=== PATIENT | female | born 1940 | race Caucasian/White ===

== ENCOUNTER 2016-05-19 06:33 | Emergency (ER) | payer MEDICARE, OTHER ==
[2016-05-19 06:41] VITALS: BP 151/80
--- NOTE | 2016-05-19 07:03 | ED Physician Documentation ---
PD HPI ABD PAIN - Stated complaint Stated Complaint: STOMACH AND BACK PX - Chief complaint Chief Complaint: Abd Pain - History obtained from History obtained from: Patient - History of Present Illness Timing - onset: How many days ago (few) Timing - duration: Days (few days of upper abd pain worsening, significant pain overnight) Timing - details: Gradual onset, Still present Quality: Aching, Sharp, Pain Location: Epigastric Radiation: Upper back Improved by: Meds (antacids help but only briefly. Using Pepto.) Worsened by: Eating Associated symptoms: Nausea. No: Fever, Vomiting, Diarrhea, Melena (noted dark stool after taking the pepto) Similar symptoms before: Diagnosis (ulcers) Recently seen: Not recently seen Review of Systems Constitutional: denies: Fever Nose: denies: Rhinorrhea / runny nose, Congestion Throat: denies: Sore throat Respiratory: denies: Cough GI: reports: Abdominal Pain, Nausea. 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: Uterine cancer, Other Other Past Medical History: vaginal ca - Past Surgical History General: Cholecystectomy Ortho: Spine surgery /GEOMETRY PROFESSOR: Hysterectomy HEENT: Cataracts Derm: Skin cancer surgery - Present Medications Home Medications: Ambulatory Orders Medication Instructions Recorded Confirmed Aspirin 81 mg PO DAILY 05/19/16 05/19/16 Atenolol 05/19/16 Hydrochlorothiazide 25 mg PO DAILY 05/19/16 05/19/16 Hydrocodone/Acetaminophen [Luttrell 1 each PO Q6H PRN #20 tablet 05/19/16 5-325 Tablet] Lidocaine Viscous 2% [Xylocaine 5 ml MM Q4H PRN #1 bottle 05/19/16 Viscous 2%] Pantoprazole [Protonix] 40 mg PO DAILY #30 tablet 05/19/16 Sucralfate 1 gm PO QID #40 tablet 05/19/16 - Allergies Allergies/Adverse Reactions: Allergies Allergy/AdvReac Type Severity Reaction Status Date / Time No Known Drug Allergies Allergy Verified 05/19/16 06:41 - Social History Does the pt smoke?: No Smoking Status: Never smoker Does the pt drink ETOH?: No Does the pt have substance abuse?: No - Immunizations Immunizations are current?: No PD ED PE NORMAL - Vitals Vital signs reviewed: Yes - General General: Alert and oriented X 3, Well developed/nourished - HEENT HEENT: Pharynx benign - Neck Neck: Supple, no meningeal sign - Cardiac Cardiac: RRR, No murmur - Respiratory Respiratory: Clear bilaterally - Abdomen Abdomen: Normal bowel sounds, Soft, Non distended, No organomegaly, Other ( tender epigastric without percussion nor rebound tenderness. ) - Back Back: No CVA TTP - Derm Derm: Normal color, Warm and dry - Extremities Extremities: Normal ROM s pain, No edema, No calf tenderness / cord - Neuro Neuro: Alert and oriented X 3, No motor deficit, Normal speech Results - Vitals Vitals: Vital Signs - 24 hr 05/19/16 06:36 Temperature 36.9 C Heart Rate 73 Respiratory 14 Rate Blood Pressure 151/80 H O2 Saturation 98 Oxygen O2 Source Room air - Labs Labs: Laboratory Tests 05/19/16 05/19/16 05/19/16 07:40 07:40 07:40 WBC 8.2 RBC 4.02 L Hgb 11.9 L Hct 35.4 L MCV 88.0 MCH 29.6 MCHC 33.6 RDW 15.1 H Plt Count 226 MPV 7.9 Neut # 4.7 Lymph # 2.5 [place] # 0.6 Eos # 0.4 Baso # 0.1 Absolute Nucleated RBC 0.00 Nucleated RBCs 0.0 Sodium 137 Potassium 4.3 Chloride 104 Carbon Dioxide 24 Anion Gap 9.0 BUN 35 H Creatinine 1.5 H Estimated GFR (MDRD) 34 L Glucose 124 H Calcium 9.3 Total Bilirubin 0.6 AST 33 ALT 33 Alkaline Phosphatase 84 Total Protein 7.3 Albumin 4.0 Globulin 3.3 Albumin/Globulin Ratio 1.2 Lipase 40 H. pylori IgG Antibody Negative PD MEDICAL DECISION MAKING - ED course Complexity details: considered differential (improved with GI cocktail and does not have gallbladder. Labs are good. H.pylori negative. ), d/w patient Departure - Departure Disposition: 01 Home, Self Care Clinical Impression: Epigastric abdominal pain Condition: Stable Record reviewed to determine appropriate education?: Yes Instructions: ED PUD Follow-Up: Mandeep Nuñez MD [Primary Care Provider] - Prescriptions: Hydrocodone/Acetaminophen [Luttrell 5-325 Tablet] 1 each PO Q6H PRN #20 tablet PRN Reason: Pain Pantoprazole [Protonix] 40 mg PO DAILY #30 tablet Sucralfate 1 gm PO QID #40 tablet Lidocaine Viscous 2% [Xylocaine Viscous 2%] 5 ml MM Q4H PRN #1 bottle PRN Reason: Pain Comments: Hold your aspirin for 1-2 weeks. Change to pantoprazole for acid reduction. Add sulcralfate 4times daily to coat the stomach. Tylenol or hydrocodone for pain as needed. Could also use some of the lidocaine mixed with antacid for stomach pain when bad. Recheck with PMD in about a week. Discharge Date/Time: 05/19/16 08:31
[2016-05-19] MEDS ORDERED: MAG HYDROX/AL HYDROX/SIMETH 30 ML UDC ONE (07:30)
[2016-05-19] MEDS ORDERED: LIDOCAINE VISCOUS 2% 15 ML UDC MM ONE (07:30)
[2016-05-19] MEDS ORDERED: HYDROcod/ACETAM 5/325 MG TABLET ONE (07:30)
[2016-05-19] MEDS: LIDOCAINE VISCOUS 2% 15 ML UDC MM STA (07:34)
[2016-05-19] MEDS: HYDROcod/ACETAM 5/325 MG TABLET PO STA (07:34)
[2016-05-19] MEDS: MAG HYDROX/AL HYDROX/SIMETH 30 ML UDC PO STA (07:34)
[2016-05-19 07:49] LABS: BASOPHILS # (AUTO) 0.1 10^3/uL (0.0-0.1); BASOPHILS % (AUTO) 0.8 %; EOSINOPHILS # (AUTO) 0.4 10^3/uL (0.0-0.7); EOSINOPHILS % (AUTO) 4.3 %; HCT - HEMATOCRIT 35.4 % (37.0-47.0); HGB - HEMOGLOBIN 11.9 g/dL (12.0-16.0); LYMPHOCYTES # (AUTO) 2.5 10^3/uL (1.5-3.5); LYMPHOCYTES % (AUTO) 30.1 %; MEAN CORPUSCULAR HEMOGLOBIN 29.6 pg (27.0-31.0); MEAN CORPUSCULAR HGB CONC 33.6 g/dL (32.0-36.0); MEAN PLATELET VOLUME 7.9 fL (7.9-10.8); MONOCYTES # (AUTO) 0.6 10^3/uL (0.0-1.0); NEUTROPHILS # (AUTO) 4.7 10^3/uL (1.5-6.6); NEUTROPHILS % (AUTO) 57.8 %; RED BLOOD COUNT 4.02 10^6/uL (4.20-5.40); RED CELL DISTRIBUTION WIDTH 15.1 % (12.0-15.0); UNCORRECTED WHITE BLOOD COUNT 8.2 x10^3/uL; WHITE BLOOD COUNT 8.2 x10^3/uL (4.8-10.8)
[2016-05-19 08:00] LABS: ALBUMIN/GLOBULIN RATIO 1.2 (1.0-2.2); BILIRUBIN,TOTAL 0.6 mg/dL (0.2-1.0); CALCIUM 9.3 mg/dL (8.5-10.3); CREATININE 1.5 mg/dL (0.4-1.0); POTASSIUM 4.3 mmol/L (3.5-5.0); TOTAL PROTEIN 7.3 g/dL (6.7-8.2)
[2016-05-19 08:28] LABS: H. PYLORI IGG ANTIBODY Negative (Negative); HPYLORI NEG QC Negative (Negative); HPYLORI POS QC POSITIVE (Positive)
== END 2016-05-19 08:31 | disposition home or self-care (01) ==
LOC: ED 06:33
DX: R10.13 Epigastric pain (principal); I10 Essential (primary) hypertension; Z87.11 Personal history of peptic ulcer disease; Z79.82 Long term (current) use of aspirin
CPT/HCPCS: 36415; 80053; 83690; 85025; 87339; 99283

== ENCOUNTER 2016-05-29 09:07 | Day surgery (SDC) | payer MEDICARE, OTHER ==
[2016-05-29] MEDS ORDERED: LACTATED RINGERS 1,000 ML IV ONE (09:42)
[2016-05-29] MEDS ORDERED: PROPOFOL 200 MG/20 ML VIAL IVP ONE (11:00)
[2016-05-29] MEDS ORDERED: ONDANSETRON 40 MG/20 ML MDV IV ONE (11:00)
[2016-05-29] MEDS ORDERED: MIDAZOLAM 2 MG/2 ML VIAL IVP ONE (11:00)
[2016-05-29] MEDS ORDERED: LIDOCAINE-MPF 2% 5 ML VIAL IM ONE (11:00)
== END 2016-05-29 09:08 | disposition home or self-care (01) ==
PROC: 0DB68ZX Excision of Stomach, Via Natural or Artificial Opening Endoscopic, Diagnostic (ICD-10-PCS; principal; 2016-05-29 10:30)
DX: K29.70 Gastritis, unspecified, without bleeding (principal); K21.9 Gastro-esophageal reflux disease without esophagitis; K44.9 Diaphragmatic hernia without obstruction or gangrene; K29.80 Duodenitis without bleeding; I10 Essential (primary) hypertension; Z90.49 Acquired absence of other specified parts of digestive tract; Z90.710 Acquired absence of both cervix and uterus; Z82.49 Family history of ischemic heart disease and other diseases of the circulatory system; Z82.3 Family history of stroke; Z80.8 Family history of malignant neoplasm of other organs or systems; Z79.82 Long term (current) use of aspirin
CPT/HCPCS: 43239; J2405; J7120

== ENCOUNTER 2016-09-25 11:16 | Outpatient (CLI) | payer MEDICARE, OTHER ==
--- NOTE | 2016-09-26 15:20 | Mammography Report ---
DIGITAL SCREENING MAMMOGRAM; 09/25/2016 CLINICAL INDICATION: A 76-year-old, for screening. COMPARISON: 01/2008. TECHNIQUE: Routine CC and MLO projections were obtained of the breasts. Bilateral laterally exaggera darlene craniocaudal views. FINDINGS: The breasts again demonstrate heterogeneously dense fibroglandular parenchyma bilaterally. Intramammary lymph nodes are stable. No suspicious masses, clustered microcalcifications, or regions of architectural distortion are identified. IMPRESSION: BENIGN FINDINGS. RECOMMENDATION: ROUTINE ANNUAL SCREENING UNLESS OTHERWISE CLINICALLY INDICATED. BIRADS CATEGORY 2-BENIGN FINDINGS. STANDARD QUALIFYING STATEMENTS 1. This examination was reviewed with the aid of Computer-Aided Detection (CAD). 2. A negative or benign imaging report should not delay biopsy if clinically suspicious findings are present. Consider surgical consultation if warranted. More than 5% of cancers are not identified by i maging. 3. Dense breasts may obscure an underlying neoplasm. JOB #: [id number] EXT JOB #:[id number]
== END 2016-09-25 11:17 | disposition home or self-care (01) ==
LOC: DI.N 11:16
PROVIDERS: ATTEND Family Medicine
DX: Z12.31 Encounter for screening mammogram for malignant neoplasm of breast (principal)
CPT/HCPCS: 77067

== ENCOUNTER 2017-04-15 15:56 | Outpatient (CLI) | payer MEDICARE, OTHER | END 2017-04-15 15:57 | disposition home or self-care (01) | LOC: SC 15:56 | PROVIDERS: ATTEND Nurse Practitioner Family | DX: G47.33 Obstructive sleep apnea (adult) (pediatric) (principal) | CPT/HCPCS: 99214; G0463; 99212 ==

== ENCOUNTER 2017-08-25 15:02 | Outpatient (CLI) | payer MEDICARE, OTHER | END 2017-08-25 15:03 | disposition home or self-care (01) | LOC: SC 15:02 | PROVIDERS: ATTEND Nurse Practitioner Family | DX: G47.33 Obstructive sleep apnea (adult) (pediatric) (principal) | CPT/HCPCS: 99213; G0463; 99212 ==

== ENCOUNTER 2017-11-24 11:08 | Outpatient (CLI) | payer MEDICARE, OTHER | END 2017-11-24 11:09 | disposition home or self-care (01) | LOC: SC 11:08 | PROVIDERS: ATTEND Nurse Practitioner Family | DX: G47.33 Obstructive sleep apnea (adult) (pediatric) (principal) | CPT/HCPCS: 99213; G0463; 99212 ==

== ENCOUNTER 2018-03-31 13:00 | Emergency (ER) | payer MEDICARE, OTHER ==
[2018-03-31 13:49] LABS: BASOPHILS # (AUTO) 0.1 10^3/uL (0.0-0.1); BASOPHILS % (AUTO) 0.8 %; EOSINOPHILS # (AUTO) 0.1 10^3/uL (0.0-0.7); EOSINOPHILS % (AUTO) 1.6 %; HGB - HEMOGLOBIN 12.3 g/dL (12.0-16.0); LYMPHOCYTES # (AUTO) 3.1 10^3/uL (1.5-3.5); LYMPHOCYTES % (AUTO) 38.9 %; MEAN CORPUSCULAR HEMOGLOBIN 28.8 pg (27.0-31.0); MEAN CORPUSCULAR HGB CONC 32.5 g/dL (32.0-36.0); MEAN CORPUSCULAR VOLUME 88.5 fL (81.0-99.0); MONOCYTES # (AUTO) 0.6 10^3/uL (0.0-1.0); MONOCYTES % (AUTO) 7.6 %; NEUTROPHILS % (AUTO) 51.1 %; PLT - PLATELET COUNT 261 10^3/uL (130-450); RED BLOOD COUNT 4.29 10^6/uL (4.20-5.40); RED CELL DISTRIBUTION WIDTH 14.5 % (12.0-15.0); WHITE BLOOD COUNT 7.9 x10^3/uL (4.8-10.8)
--- NOTE | 2018-03-31 14:04 | XRAY Report ---
Reason: Chest Pain Procedure Date: 03/31/2018 Accession Number: [id number] / [id number] Procedure: XR - Chest 1 View X-Ray CPT Code: 59698 FULL RESULT: EXAM: CHEST RADIOGRAPHY EXAM DATE: 03/31/2018 01:36 PM. CLINICAL HISTORY: Chest Pain. COMPARISON: 05/11/2006. TECHNIQUE: 1 view. FINDINGS: Lungs/Pleura: No focal opacities evident. No pleural effusion. No pneumothorax. Mediastinum: Within exam limitations, the cardiomediastinal contour is normal. Other: None. IMPRESSION: Clear lungs. No acute findings. RADIA
[2018-03-31 14:08] LABS: ALBUMIN/GLOBULIN RATIO 1.1 (1.0-2.2); BILIRUBIN,TOTAL 0.5 mg/dL (0.2-1.0); CALCIUM 9.2 mg/dL (8.5-10.3); CREATININE 1.3 mg/dL (0.4-1.0); TOTAL PROTEIN 7.5 g/dL (6.7-8.2)
[2018-03-31] MEDS ORDERED: LIDOCAINE VISCOUS 2% 15 ML UDC MM STA (14:08)
[2018-03-31] MEDS ORDERED: MAG HYDROX/AL HYDROX/SIMETH 30 ML UDC PO STA (14:08)
--- NOTE | 2018-03-31 14:13 | ED Physician Documentation ---
PD HPI ABD PAIN - Stated complaint Stated Complaint: CHEST PAIN/SOA/ARM NUMBNESS - Chief complaint Chief Complaint: Cardiac - History obtained from History obtained from: Patient, Family - History of Present Illness Timing - onset: How many days ago (4) Timing - duration: Days Timing - details: Gradual onset, Still present Quality: Sharp, Pain Location: Epigastric Radiation: Chest Improved by: Eating Associated symptoms: Nausea, Chest pain. No: Vomiting, Diarrhea, Constipation, Dysuria Similar symptoms before: Diagnosis (gastritis) Recently seen: Not recently seen - Additional information Additional information: 78-year-old female with a prior history of gastritis has developed symptoms again of epigastric pain radiating into her chest and she is found that this is sometimes better with a little bit of food she is not getting relief with the use of her acid reducing pantoprazole which she states she has been taking regularly. She is started up again on Carafate and she has been on this now 2 days and she continues to have this pain she is come in now for reevaluation. She is previously had scoping demonstrating the gastritis after the visit to the emergency department where she had relief with the use of a GI cocktail. Review of Systems Constitutional: denies: Fever Eyes: denies: Decreased vision Ears: denies: Ear pain Nose: denies: Congestion Throat: denies: Sore throat Cardiac: denies: Chest pain / pressure, Palpitations Respiratory: denies: Dyspnea, Cough GI: reports: Abdominal Pain, Nausea. 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, Other : Other HEENT: None Psych: None Musculoskeletal: Osteoarthritis Derm: Other - Past Surgical History General: Cholecystectomy, Appendectomy Ortho: Spine surgery /MARKETING DESIGNER: Hysterectomy HEENT: Cataracts Derm: Skin cancer surgery - Present Medications Home Medications: Ambulatory Orders Medication Instructions Recorded Confirmed Aspirin 81 mg PO DAILY 05/19/16 03/31/18 Pantoprazole [Protonix] 40 mg PO DAILY #30 tablet 05/19/16 03/31/18 Sucralfate 1 gm PO QID #40 tablet 05/19/16 03/31/18 Triamterene/Hydrochlorothiazid 1 tab PO DAILY 05/29/16 03/31/18 [Triamterene-Hctz 37.5-25 mg Cp] Allopurinol 1 tab PO DAILY 03/31/18 03/31/18 Metoprolol Tartrate 1 tab PO DAILY 03/31/18 03/31/18 Sucralfate [Carafate] 1 gm PO ACHS #60 tablet 03/31/18 - Allergies Allergies/Adverse Reactions: Allergies Allergy/AdvReac Type Severity Reaction Status Date / Time No Known Drug Allergies Allergy Verified 03/31/18 13:12 - Social History Does the pt smoke?: No Smoking Status: Never smoker Does the pt drink ETOH?: No Does the pt have substance abuse?: No - Immunizations Immunizations are current?: No PD ED PE NORMAL - Vitals Vital signs reviewed: Yes (hypertensive mild) - General General: Alert and oriented X 3, No acute distress, Well developed/nourished - HEENT HEENT: Atraumatic, PERRL, EOMI - Neck Neck: Supple, no meningeal sign, No bony TTP - Cardiac Cardiac: RRR, No murmur - Respiratory Respiratory: No respiratory distress, Clear bilaterally - Abdomen Abdomen: Soft, Non tender - Back Back: No CVA TTP, No spinal TTP - Derm Derm: Normal color, Warm and dry, No rash - Extremities Extremities: No deformity, No edema - Neuro Neuro: Alert and oriented X 3, hurricane tracker 2-12 intact, No motor deficit, No sensory deficit, Normal speech Eye Opening: Spontaneous Motor: Obeys Commands Verbal: Oriented GCS Score: 15 - Psych Psych: Normal mood, Normal affect Results - Vitals Vitals: Vital Signs - 24 hr 03/31/18 03/31/18 13:09 13:11 Temperature 36.7 C Heart Rate 66 65 Respiratory 18 16 Rate Blood Pressure 149/72 H 131/61 H O2 Saturation 100 99 Oxygen O2 Source Room air - Labs Labs: Laboratory Tests 03/31/18 03/31/18 03/31/18 13:45 13:45 13:45 WBC 7.9 RBC 4.29 Hgb 12.3 Hct 38.0 MCV 88.5 MCH 28.8 MCHC 32.5 RDW 14.5 Plt Count 261 MPV 8.0 Neut # (Auto) 4.0 Lymph # (Auto) 3.1 [place] # (Auto) 0.6 Eos # (Auto) 0.1 Baso # (Auto) 0.1 Absolute Nucleated RBC 0.00 Nucleated RBC % 0.0 Sodium 136 Potassium 3.5 Chloride 102 Carbon Dioxide 25 Anion Gap 9.0 BUN 30 H Creatinine 1.3 H Estimated GFR (MDRD) 40 L Glucose 112 H Calcium 9.2 Total Bilirubin 0.5 AST 24 ALT 23 Alkaline Phosphatase 96 Troponin I < 0.04 Total Protein 7.5 Albumin 4.0 Globulin 3.5 Albumin/Globulin Ratio 1.1 Lipase 61 H - Rads (name of study) chest one view Radiology: Prelim report reviewed (Impression: Clear lungs. No acute findings.), EMP read indepedently, See rad report PD MEDICAL DECISION MAKING - ED course Complexity details: considered differential, d/w patient, d/w family ED course: Patient was administered a GI cocktail consisting of viscous lidocaine 10 mL and Mylanta 30 mL's with relief of her pain. This is considered a diagnostic test for gastritis in this patient's care and we have made additional recommendations about changing the patient's acid reducing medication from pantoprazole to Pepcid AC. She will take the Carafate regularly for at least 1 week and I have encouraged her to actually take this medicine. She indicates that previously when she had this she had good relief of her pain and only took this for 1 or 2 days. Departure - Departure Disposition: 01 Home, Self Care Clinical Impression: Gastritis Qualifiers: Gastritis type: unspecified gastritis Chronicity: acute Gastritis bleeding: without bleeding Qualified Code(s): K29.00 - Acute gastritis without bleeding Condition: Stable Instructions: ED PUD Vs Gastritis Follow-Up: Wes Duke DO [Primary Care Provider] - Prescriptions: Sucralfate [Carafate] 1 gm PO ACHS #60 tablet Comments: Today it appears that your Protonix is not working and we recommend you switched to Pepcid AC and take this daily. In addition take the Carafate half an hour before eating and at bedtime on a regular basis for at least 7-10 days.
[2018-03-31 15:27] VITALS: BP 130/79
== END 2018-03-31 15:28 | disposition home or self-care (01) ==
LOC: ED 13:00
DX: K29.00 Acute gastritis without bleeding (principal); Z79.82 Long term (current) use of aspirin; I10 Essential (primary) hypertension
CPT/HCPCS: 36415; 71045; 80053; 83690; 84484; 85025; 93005; 99283; A9270

== ENCOUNTER 2018-10-01 08:00 | Outpatient (CLI) | payer MEDICARE, OTHER | END 2018-10-01 23:59 | disposition home or self-care (01) | LOC: LAB.R 08:00 | PROVIDERS: ATTEND Family Medicine | DX: R30.0 Dysuria (principal); Z93.6 Other artificial openings of urinary tract status | CPT/HCPCS: 87070; 87077; 87086; 87181; 87205 ==

== ENCOUNTER 2018-12-07 15:41 | Outpatient (CLI) | payer MEDICARE, OTHER ==
[2018-12-07 16:33] VITALS: BP 124/60
--- NOTE | 2018-12-07 16:33 | SLEEP CARE CONSULTATION ---
Information from patient questionnaire entered by Yoli Chavez. I have reviewed and concur with the information entered by Yoli Chavez. This document represents the service I personally performed and the decisions made by me, Viki Hoover, RN, MSN, K[facility] WHAK[facility]URUHA[facility]. History of Present Illness Previous diagnosis: Mild, Obstructive Sleep Apnea-Hypopnea Syndrome AHI: 6.8 Reason for CPAP/BiPAP follow up: annual Equipment type: CPAP Equipment obtained from: [facility]– [place] (she has been having getting supplies and poor customer service.) Mask style: Nasal (Dreamwear) Mask brand: Respironics Backup mask available: No (keep current mask when replaced as spare ) Last cushion change: a month Prior sleep studies: Yes Year and Where: [facility] CPAP Compliance Data - Data Reviewed with Patient Average duration of nightly device use: 10h 13m Compliance rate %: 95 (puts on CPAP in bed relaxing before sleep so doesnt fall asleep without it. ) Current pressure setting (cmH2O): 7 Humidity setting: unknown Heated hose setting: unknown Central apnea: 0.6 Average large leak: zero. Subjective Missed days of use due to: reports: illness Patient concerns: denies: aerophagia, mask discomfort, air blowing in eyes, mask leak noise, condensation in mask/hose, nasal congestion, dry mouth, nose, throat, epistaxis Observed to snore while using device: No Current pressure setting perceived as: comfortable On therapy, patient: reports: sleeping better, awakening more refreshed, being more awake and alert during the day, more rested overall. denies: drowsiness while driving Initial Stonewall Sleepiness Scale score: 9 Current Stonewall Sleepiness Scale score: 7 Allergies and Home Medications Known drug allergies: No Home medication list reviewed: Yes Allergy and home medication list: Medication Name (generic/name brand) Strength & Dosage Metoprolol Succinate ER 50mg tab one daily Allopurinol 100mg tab two daily Triamterene-HCTZ 37.5-25mg tab one daily Zyrtec Allergy 10mg tab one daily Meclizine HCL 25mg tab one TID PRN Pantoprazole Sodium 40mg DR cap one daily Furosemide 40mg tab one daily Triamcinolone Acetodide 0.1% ext crm Apply sparingly to affected area daily Mobic 15mg tab one daily Levothyroxine Unknown dose 6 days a week Allergies: no known drug allergies Review of Systems Review of systems same as previous: Yes Physical Exam Blood Pressure: 124/60 Cuff size: long Heart Rate: 72 O2 Saturation: 96 Height: 5 ft Weight: 158 lb 3.2 oz Body Mass Index: 30.9 BMI Classification: Obesity Class 1 Impression and Plan 1. Obstructive Sleep Apnea-Hypopnea Syndrome, mild, with good treatment compliance and good apnea control. On CPAP therapy, the patient has better sleep quality and is more rested overall. For her supply concerns, I discussed how she can transfer to a new DME. My staff will inform her of her options. If continued problems she is to contact us. She has gained some weight, some of which she states is water weight and takes a diuretic intermittently. She is to use daily but diuresis affects her ADL. Thus she was advised to discuss with her prescriber ( PCP) so dose can be modified so patient will use consistently. I also discussed the importance of keeping water weight down for heart health. In addition,she is advised to lose body weight as current BMi is class 1 obesity. She is advised how her increase in weight and obesity can also increase her apnea risks and overall health risks. Patient's apnea severity and rationale for treatment to reduce apnea, improve sleep quality and reduce cardiovascular and cerebrovascular events was reviewed. I also reviewed the benefit of consistent device use of CPAP for her hypertension. * Continue CPAP pressure at 7 cmH2O * Transfer to new DME. * Notify me if snoring with mask or feeling that the pressure is too much or too little * Attempt to lose weight * Follow up with PCP re diuretic concerns. * Return for follow up in 1 year , or sooner if concerns arise I spent 100% of this 25 minute visit face to face with the patient with greater than 50% of this was spent time counseling the patient and coordination of care.
== END 2018-12-07 15:42 | disposition home or self-care (01) ==
LOC: SC 15:41
PROVIDERS: ATTEND Nurse Practitioner Family
DX: G47.33 Obstructive sleep apnea (adult) (pediatric) (principal)
CPT/HCPCS: 99214; G0463; 99212

== ENCOUNTER 2018-12-20 14:36 | Outpatient (CLI) | payer MEDICARE, OTHER ==
--- NOTE | 2018-12-21 06:47 | Ultrasound Report ---
Reason: PAIN IN RT LEG Procedure Date: 12/20/2018 Accession Number: [id number] / [id number] Procedure: US - Duplex Ext Veins Right CPT Code: Final Report FULL RESULT: EXAM: RIGHT LOWER EXTREMITY VENOUS ULTRASOUND EXAM DATE: 12/20/2018 03:43 PM. CLINICAL HISTORY: Pain in right leg. COMPARISON: No previous duplex Doppler venous examinations available for comparison at time of dictation. TECHNIQUE: Real-time sonographic vascular imaging was performed by the coating operator through the lower extremity utilizing both color-flow and Doppler spectral analysis. Multiple outside energy sales representatives static images were saved for review. FINDINGS: Common Femoral Vein (CFV): Normal. CFV-GSV Junction: Normal. Profunda Femoral Vein (PFV): Normal. Femoral Vein (FV) Prox: Normal. Femoral Vein (FV) Mid: Normal. Femoral Vein (FV) Dist: Normal. Popliteal Vein: Normal. Posterior Tibial Veins: Normal. Peroneal Veins: Normal. Contralateral Side CFV: Normal. Other: None. IMPRESSION: No evidence for deep venous thrombosis. RADIA
== END 2018-12-20 14:37 | disposition home or self-care (01) ==
LOC: DI 14:36
PROVIDERS: ATTEND Family Medicine
DX: M79.604 Pain in right leg (principal)

== ENCOUNTER 2019-08-02 08:00 | Outpatient (CLI) | payer MEDICARE, OTHER | END 2019-08-02 23:59 | disposition home or self-care (01) | LOC: LAB.R 08:00 | PROVIDERS: ATTEND Family Medicine | DX: R35.0 Frequency of micturition (principal) | CPT/HCPCS: 87086 ==

== ENCOUNTER 2019-08-08 14:30 | Outpatient (CLI) | payer MEDICARE, OTHER | END 2019-08-08 23:59 | disposition home or self-care (01) | LOC: LAB.R 14:30 | PROVIDERS: ATTEND Nurse Practitioner | DX: N30.90 Cystitis, unspecified without hematuria (principal) | CPT/HCPCS: 87086 ==

== ENCOUNTER 2019-09-14 14:17 | Outpatient (CLI) | payer MEDICARE, OTHER ==
--- NOTE | 2019-09-14 15:20 | XRAY Report ---
Reason: FATIGUE Procedure Date: 09/14/2019 Accession Number: [id number] / [id number] Procedure: WCP - Chest 2 View X-Ray CPT Code: 91920 Final Report FULL RESULT: PROCEDURE: Chest 2 View X-Ray INDICATIONS: FATIGUE TECHNIQUE: 2 view(s) of the chest. COMPARISON: None. FINDINGS: Surgical changes and devices: None. Lungs and pleura: No pleural effusions or pneumothorax. Lungs are clear. Mediastinum: Mediastinal contours are normal. Heart size is normal. Bones and chest wall: No suspicious bony abnormalities. Soft tissues appear unremarkable. IMPRESSION: Normal for age, source of chronic fatigue is not seen. Reviewed by: Marco Briscoe MD on 09/14/2019 3:18 PM PDT Approved by: Marco Briscoe MD on 09/14/2019 3:18 PM PDT Station ID: [id number]
== END 2019-09-14 23:59 ==
LOC: DI.WCP 14:17
PROVIDERS: ATTEND Family Medicine
DX: R53.83 Other fatigue (principal); Z20.818 Contact with and (suspected) exposure to other bacterial communicable diseases
CPT/HCPCS: 36415; 71046; 80053; 85025; U0004

== ENCOUNTER 2019-10-13 08:54 | Outpatient (CLI) | payer MEDICARE, OTHER ==
--- NOTE | 2019-10-13 08:57 | XRAY Report ---
PROCEDURE: Chest 2 View X-Ray INDICATIONS: Fatigue TECHNIQUE: 2 view(s) of the chest. COMPARISON: 03/31/2018 FINDINGS: Surgical changes and devices: None. Lungs and pleura: No pleural effusions or pneumothorax. Lungs are clear. Mediastinum: Mediastinal contours are normal. Heart size is slightly enlarged. Bones and chest wall: No suspicious bony abnormalities. Soft tissues appear unremarkable. IMPRESSION: No acute cardiopulmonary process radiographically. Mild cardiomegaly similar to the prio r study. Correlated with BNP. Reviewed by: Jb Dubois MD on 10/13/2019 8:55 AM PDT Approved by: Jb Dubois MD on 10/13/2019 8:55 AM PDT Station ID: [id number]
== END 2019-10-13 23:59 | disposition home or self-care (01) ==
LOC: DI.WCP 08:54
PROVIDERS: ATTEND Family Medicine
DX: R53.83 Other fatigue (principal)
CPT/HCPCS: 71046

== ENCOUNTER 2019-10-27 09:36 | Outpatient (CLI) | payer MEDICARE, OTHER ==
--- NOTE | 2019-10-27 10:28 | SLEEP CARE CONSULTATION ---
Information from patient questionnaire entered by Daly Bonilla. I have reviewed and concur with the information entered by Daly Bonilla. This document represents the service I personally performed and the decisions made by me, Ann Coleman ARNP. History of Present Illness Service Date and Time: 10/27/2019 09 Previous diagnosis: Mild, Obstructive Sleep Apnea-Hypopnea Syndrome AHI: 6.8 (in 2014) Reason for follow up: other (11 month, mask issues) Equipment type: CPAP Equipment obtained from: [facility] (getting supplies as needed) Mask style: Nasal Mask brand: Respironics Backup mask available: No (keep mask when replaced next) Last cushion change: 2 weeks ago Prior sleep studies: Yes Year and Where: - [facility], 1992 - [facility] Type of Sleep Study: Polysomnography HPI additional information: TIFFANIE COSME was diagnosed to have mild, AHI 6.8, obstructive sleep apnea- hypopnea syndrome and returned today for CPAP therapy eleven month follow-up with mask issues. She states about 2 months ago she started having difficulty with being tired and sleepy all the time. She states she can get up in the morning, use the bathroom and then go back to bed and sleep. She is not feeling refreshed in the morning. She went to see her PCP who diagnosed her with a UTI and she was treated with antibiotics for 6 weeks. She was then referred to a urologist. She states her PCP has ordered an EKG and other test to check out her heart. She is on leave from her job since she is so sleepy she cannot do her work. She got to thinking about her CPAP machine. She checked with Jessica who recommended she follow up here and she states someone from this office told her that her machine seems to be shutting off during the night. She is not aware if it is shutting off because she is sleeping. She decided to come in to see if her machine needed to be checked or replaced. Sleep Study - Results Prior sleep studies: Yes Year and Where: [facility] CPAP Compliance Data - Data Reviewed with Patient Average duration of nightly device use: 11.5 Compliance rate %: 100 (180 days) Current pressure setting (cmH2O): 7 Average residual AHI: 0.7 Subjective Patient concerns: reports: dry mouth, nose, throat (sometimes; uses chin strap). denies: aerophagia, mask discomfort, air blowing in eyes, mask leak noise, condensation in mask/hose, nasal congestion, epistaxis, other Observed to snore while using device: No Current pressure setting perceived as: comfortable On therapy, patient: reports: sleeping better, awakening more refreshed, being more awake and alert during the day, more rested overall, other (not waking refreshed and being sleepy during the day in last 2 months). denies: drowsiness while driving Initial [place] Sleepiness Scale score: 9 (in 2007) Allergies and Home Medications Drug allergies reviewed: Yes (NKDA) Home medication list reviewed: Yes (no changes) Allergy and home medication list: Allopurinol Triamterene/HCTZ Carafate Protonix Metoprolol Aspirin Review of Systems Review of systems same as previous: Yes (no changes) Physical Exam Heart Rate: 64 O2 Saturation: 100 Height: 5 ft Weight: 156 lb 12.8 oz Body Mass Index: 30.6 BMI Classification: Obese Impression and Plan 1. Obstructive Sleep Apnea-Hypopnea Syndrome, mild, with good treatment compliance and good apnea control. On CPAP therapy, the patient has better sleep quality and is more rested overall. She has had increasing fatigue and sleepiness in the last 2 months. She states she was told that her machine is turning off during the night. The patients CPAP needs to be evaluated for malfunction. A prescriptions for checking the machine will be made. I will follow up with patient in the next month to see if machine was fixed or if it needs to be replaced. If the machine is functioning properly she will need to follow up with her PCP for further evaluation of her fatigue. Patient's apnea severity and rationale for treatment to reduce apnea, improve sleep quality and reduce cardiovascular and cerebrovascular events was reviewed. I also reviewed the benefit of consistent device use of CPAP for hypertension. * Continue auto CPAP pressure at 12 cmH2O * Service machine to check for malfunction. * Notify me if snoring with mask or feeling that the pressure is too much or too little * Attempt to lose weight * Call this office if any problems using CPAP * Return for follow up in 1 month, or sooner if concerns arise Visit Type: In Office Time Spent with Patient (minutes): 24 Provider Statement: I spent 100% of the Face to Face Visit with the patient with greater than 50% spent counseling the patient and coordination of care.
== END 2019-10-27 09:37 | disposition home or self-care (01) ==
LOC: SC 09:36
PROVIDERS: ATTEND Nurse Practitioner Family
DX: G47.33 Obstructive sleep apnea (adult) (pediatric) (principal); E66.9 Obesity, unspecified; Z68.30 Body mass index [BMI] 30.0-30.9, adult
CPT/HCPCS: 99213; G0463; 99212

== ENCOUNTER 2022-09-12 08:00 | Outpatient (CLI) | payer MEDICARE, OTHER ==
[2022-09-12 13:17] LABS: BILIRUBIN,URINE NEGATIVE (NEGATIVE); GLUCOSE, URINE (UA) NEGATIVE (NEGATIVE); KETONES,URINE (UA) NEGATIVE (NEGATIVE); LEUKOCYTE ESTERASE, URINE TRACE (NEGATIVE); NITRITE,URINE NEGATIVE (NEGATIVE); OCCULT BLOOD,URINE TRACE-INTA (NEGATIVE); PROTEIN,URINE 100 mg/dL (NEGATIVE); UROBILINOGEN,URINE 0.2 (NORMAL) E.U./dL (NORMAL)
[2022-09-12 13:46] LABS: BACTERIA,URINE None Seen /HPF (None Seen); CLARITY,URINE CLEAR (CLEAR); RBC,URINE 0-5 /HPF (0-5); SQUAMOUS EPITHELIAL CELL,UR RARE Squamous (<= Few); WBC,URINE >25 /HPF (0-5)
== END 2022-09-12 23:59 | disposition home or self-care (01) ==
LOC: LAB 08:00
PROVIDERS: ATTEND Urology
DX: N39.0 Urinary tract infection, site not specified (principal)
CPT/HCPCS: 81001; 87086

== ENCOUNTER 2023-04-10 11:29 | Outpatient (CLI) | payer MEDICARE, OTHER | END 2023-04-10 23:59 | disposition short-term general hospital (02) | LOC: EMS 11:29 | DX: R07.9 Chest pain, unspecified (principal); M54.2 Cervicalgia; M54.9 Dorsalgia, unspecified | CPT/HCPCS: A0425; A0427; A0888 ==